=== PATIENT | male | born 1955 | race Caucasian/White ===

== ENCOUNTER 2020-10-27 14:59 | Inpatient (IN) ==
[2020-10-27] MEDS ORDERED: Nitroglycerin 0.4 MG TAB.SUBL SL PRN (17:11)
[2020-10-27] MEDS ORDERED: Lactulose Oral Soln 20 GM/30 ML UDC PO PRN (17:11)
[2020-10-27] MEDS: Furosemide 40 MG TABLET PO SCH (20:22)
[2020-10-28 06:43] LABS: Basophils # 0.1 K/mcL (0.0-0.2); Basophils % 1.3 %; Eosinophils # 0.4 K/mcL (0.0-0.6); Eosinophils % 7.9 %; Hematocrit 30.7 % (37.5-50.1); Hemoglobin 9.4 g/dL (12.9-16.9); Immature Granulocytes % 1.9 % (0-4); Lymphocytes # 0.4 K/mcL (0.6-4.6); Lymphocytes % 9.4 %; Mean Corpuscular HGB Conc 30.6 g/dL (31.6-35.5); Mean Corpuscular Hemoglobin 29.9 pg (28.0-33.3); Mean Corpuscular Volume 97.8 fL (83.0-100.0); Mean Platelet Volume 9.4 fL (9.4-12.4); Monocytes # 0.6 K/mcL (0.0-1.3); Monocytes % 11.9 %; Neutrophils # 3.2 K/mcL (1.6-8.9); Red Blood Count 3.14 M/mcL (4.19-5.50); Segmented Neutrophils % 67.6 %; White Blood Count 4.7 K/mcL (4.3-11.1)
[2020-10-28 06:55] LABS: Platelet Count 88 K/mcL (140-400)
[2020-10-28] MEDS ORDERED: *HR* Enoxaparin 40 MG/0.4 ML SYRINGE SQ SCH (07:00)
[2020-10-28 07:10] LABS: BUN/Creatinine Ratio 22 (6-26); Blood Urea Nitrogen 16 mg/dL (8-23); Calcium 8.7 mg/dL (8.6-10.3); Carbon Dioxide 37 mEq/L (23-29); Chloride 91 mEq/L (98-107); Glucose 133 mg/dL (70-105); Osmolality,Calculated 283 (280-300); Potassium 3.6 mEq/L (3.5-5.1); Sodium 135 mEq/L (136-145); eGFR For African Americans > 60 (> 60); eGFR For Non-African Americans > 60 (> 60)
[2020-10-28] MEDS: Isosorbide MONOnitrate (24 HR) 60 MG TAB.ER.24H PO SCH (09:29)
[2020-10-28] MEDS: FLUoxetine 20 MG CAPSULE PO SCH (09:29)
[2020-10-28] MEDS: Furosemide 40 MG TABLET PO SCH ×2 (09:29→16:12)
[2020-10-28] MEDS: Insulin LISPRO 300 UNITS/3 ML VIAL SUBQ SCH (20:06)
[2020-10-29 05:37] LABS: Basophils % 0.9 %; Eosinophils # 0.3 K/mcL (0.0-0.6); Eosinophils % 7.2 %; Hematocrit 30.9 % (37.5-50.1); Hemoglobin 9.5 g/dL (12.9-16.9); Immature Granulocytes % 1.8 % (0-4); Lymphocytes # 0.5 K/mcL (0.6-4.6); Lymphocytes % 11.2 %; Mean Corpuscular HGB Conc 30.7 g/dL (31.6-35.5); Mean Corpuscular Hemoglobin 30.3 pg (28.0-33.3); Mean Corpuscular Volume 98.4 fL (83.0-100.0); Mean Platelet Volume 9.1 fL (9.4-12.4); Monocytes # 0.5 K/mcL (0.0-1.3); Monocytes % 11.9 %; Red Blood Count 3.14 M/mcL (4.19-5.50); Red Cell Distribution Width 16.3 % (11.5-14.5); White Blood Count 4.5 K/mcL (4.3-11.1)
[2020-10-29 05:44] LABS: Platelet Count 77 K/mcL (140-400)
[2020-10-29 05:57] LABS: BUN/Creatinine Ratio 18 (6-26); Blood Urea Nitrogen 14 mg/dL (8-23); Calcium 8.8 mg/dL (8.6-10.3); Carbon Dioxide 37 mEq/L (23-29); Chloride 92 mEq/L (98-107); Glucose 134 mg/dL (70-105); Osmolality,Calculated 284 (280-300); Potassium 3.8 mEq/L (3.5-5.1); Sodium 136 mEq/L (136-145); eGFR For African Americans > 60 (> 60); eGFR For Non-African Americans > 60 (> 60)
[2020-10-29] MEDS: Insulin LISPRO 300 UNITS/3 ML VIAL SUBQ SCH ×4 (08:48→20:19)
[2020-10-29] MEDS: FLUoxetine 20 MG CAPSULE PO SCH (08:48)
[2020-10-29] MEDS: Furosemide 40 MG TABLET PO SCH ×2 (08:48→16:42)
[2020-10-29] MEDS: Isosorbide MONOnitrate (24 HR) 60 MG TAB.ER.24H PO SCH (08:48)
[2020-10-30] MEDS: Insulin LISPRO 300 UNITS/3 ML VIAL SUBQ SCH ×5 (08:22→23:09)
[2020-10-30] MEDS: FLUoxetine 20 MG CAPSULE PO SCH (08:25)
[2020-10-30] MEDS: Isosorbide MONOnitrate (24 HR) 60 MG TAB.ER.24H PO SCH (08:25)
[2020-10-30] MEDS: Furosemide 40 MG TABLET PO SCH ×2 (08:25→19:46)
[2020-10-31] MEDS: Furosemide 40 MG TABLET PO SCH ×2 (07:58→16:04)
[2020-10-31] MEDS: FLUoxetine 20 MG CAPSULE PO SCH (07:58)
[2020-10-31] MEDS: Isosorbide MONOnitrate (24 HR) 60 MG TAB.ER.24H PO SCH (07:58)
[2020-10-31] MEDS: Insulin LISPRO 300 UNITS/3 ML VIAL SUBQ SCH ×4 (07:59→22:38)
[2020-11-01] MEDS: Isosorbide MONOnitrate (24 HR) 60 MG TAB.ER.24H PO SCH (08:24)
[2020-11-01] MEDS: Furosemide 40 MG TABLET PO SCH ×2 (08:24→17:19)
[2020-11-01] MEDS: Insulin LISPRO 300 UNITS/3 ML VIAL SUBQ SCH ×4 (08:25→20:30)
[2020-11-01] MEDS: FLUoxetine 20 MG CAPSULE PO SCH (08:27)
[2020-11-02 04:47] LABS: Basophils # 0.1 K/mcL (0.0-0.2); Basophils % 1.2 %; Eosinophils # 0.3 K/mcL (0.0-0.6); Eosinophils % 6.5 %; Hematocrit 32.6 % (37.5-50.1); Hemoglobin 9.9 g/dL (12.9-16.9); Immature Granulocytes % 1.4 % (0-4); Lymphocytes # 0.4 K/mcL (0.6-4.6); Lymphocytes % 8.9 %; Mean Corpuscular HGB Conc 30.4 g/dL (31.6-35.5); Mean Corpuscular Hemoglobin 29.8 pg (28.0-33.3); Mean Corpuscular Volume 98.2 fL (83.0-100.0); Mean Platelet Volume 9.9 fL (9.4-12.4); Monocytes # 0.6 K/mcL (0.0-1.3); Monocytes % 13.6 %; Neutrophils # 2.9 K/mcL (1.6-8.9); Red Blood Count 3.32 M/mcL (4.19-5.50); Red Cell Distribution Width 16.3 % (11.5-14.5); Segmented Neutrophils % 68.4 %; White Blood Count 4.3 K/mcL (4.3-11.1)
[2020-11-02 04:48] LABS: Platelet Count 86 K/mcL (140-400)
[2020-11-02 05:03] LABS: BUN/Creatinine Ratio 15 (6-26); Blood Urea Nitrogen 12 mg/dL (8-23); Calcium 8.7 mg/dL (8.6-10.3); Carbon Dioxide 37 mEq/L (23-29); Chloride 90 mEq/L (98-107); Glucose 130 mg/dL (70-105); Osmolality,Calculated 278 (280-300); Potassium 3.8 mEq/L (3.5-5.1); Sodium 133 mEq/L (136-145); eGFR For African Americans > 60 (> 60); eGFR For Non-African Americans > 60 (> 60)
[2020-11-02] MEDS ORDERED: Ondansetron ODT 4 MG TAB.RAPDIS SL ONE (07:47)
[2020-11-02] MEDS: Insulin LISPRO 300 UNITS/3 ML VIAL SUBQ SCH ×5 (08:02→20:10)
[2020-11-02] MEDS: FLUoxetine 20 MG CAPSULE PO SCH (08:22)
[2020-11-02] MEDS: Furosemide 40 MG TABLET PO SCH ×2 (08:22→16:13)
[2020-11-02] MEDS: Isosorbide MONOnitrate (24 HR) 60 MG TAB.ER.24H PO SCH (08:22)
[2020-11-02] MEDS: polyethylene glycoL 3350 17 GM POWD.PACK PO SCH (08:22)
[2020-11-03 07:30] VITALS: BP 135/73
[2020-11-03] MEDS: Insulin LISPRO 300 UNITS/3 ML VIAL SUBQ SCH ×2 (07:48→12:58)
[2020-11-03] MEDS: Furosemide 40 MG TABLET PO SCH (07:49)
[2020-11-03] MEDS: FLUoxetine 20 MG CAPSULE PO SCH (07:50)
[2020-11-03] MEDS: polyethylene glycoL 3350 17 GM POWD.PACK PO SCH (07:50)
[2020-11-03] MEDS: Isosorbide MONOnitrate (24 HR) 60 MG TAB.ER.24H PO SCH (07:50)
== END 2020-11-03 12:00 | disposition home health service (06) | DRG 603 ==
LOC: INPGRE 16:50
PROVIDERS: ADMIT Family Medicine; ATTEND Family Medicine

== ENCOUNTER 2020-11-27 12:08 | Inpatient (IN) ==
[2020-11-28] MEDS ORDERED: Ipratropium/Albuterol Neb 3 ML IH PRN (11:14)
[2020-11-28] MEDS ORDERED: Nitroglycerin 0.4 MG TAB.SUBL SL PRN (11:14)
[2020-11-28] MEDS ORDERED: *HR* Dextrose 50 % in Water (Vial) 50 ML VIAL IVP PRN (12:04)
[2020-11-28] MEDS ORDERED: Dextrose Gel 15 GM/37.5 ML TUBE PO PRN ×2 (12:04)
[2020-11-28] MEDS ORDERED: D5% in Water 1,000 ML IVC PRN (12:04)
[2020-11-28] MEDS: Lactulose Oral Soln 20 GM/30 ML UDC PO SCH ×2 (15:00→20:04)
[2020-11-28] MEDS ORDERED: Bumetanide 1 MG TABLET PO SCH (17:00)
[2020-11-28] MEDS: Insulin LISPRO 300 UNITS/3 ML VIAL SUBQ SCH ×2 (18:30→19:58)
[2020-11-28] MEDS: Cefdinir 300 MG CAPSULE PO SCH (20:03)
[2020-11-29 05:07] LABS: Basophils # 0.1 K/mcL (0.0-0.2); Basophils % 0.9 %; Eosinophils # 0.2 K/mcL (0.0-0.6); Eosinophils % 3.3 %; Hematocrit 31.3 % (37.5-50.1); Hemoglobin 9.8 g/dL (12.9-16.9); Immature Granulocytes % 1.6 % (0-4); Lymphocytes # 0.4 K/mcL (0.6-4.6); Lymphocytes % 6.9 %; Mean Corpuscular HGB Conc 31.3 g/dL (31.6-35.5); Mean Corpuscular Hemoglobin 29.7 pg (28.0-33.3); Mean Corpuscular Volume 94.8 fL (83.0-100.0); Mean Platelet Volume 9.5 fL (9.4-12.4); Monocytes # 0.9 K/mcL (0.0-1.3); Monocytes % 15.5 %; Neutrophils # 4.1 K/mcL (1.6-8.9); Red Cell Distribution Width 16.6 % (11.5-14.5); Segmented Neutrophils % 71.8 %; White Blood Count 5.8 K/mcL (4.3-11.1)
[2020-11-29 05:12] LABS: Platelet Count 92 K/mcL (140-400)
[2020-11-29 05:22] LABS: Alanine Aminotransferase 9 Units/L (7-52); Albumin 3.6 g/dL (3.5-5.7); Albumin/Globulin Ratio 1.2 (1.1-2.2); Alkaline Phosphatase 104 Units/L (34-104); Aspartate Amino Transferase 21 Units/L (13-39); BUN/Creatinine Ratio 21 (6-26); Bilirubin,Total 1.3 mg/dL (0.3-1.0); Blood Urea Nitrogen 18 mg/dL (8-23); Carbon Dioxide 35 mEq/L (23-29); Chloride 88 mEq/L (98-107); Globulin 3.1 g/dL (2.4-3.5); Glucose 131 mg/dL (70-105); Magnesium 1.4 mg/dL (1.6-2.6); Osmolality,Calculated 272 (280-300); Sodium 129 mEq/L (136-145); Total Protein 6.7 g/dL (6.4-8.9); eGFR For African Americans > 60 (> 60); eGFR For Non-African Americans > 60 (> 60)
[2020-11-29] MEDS: Insulin LISPRO 300 UNITS/3 ML VIAL SUBQ SCH ×4 (07:57→20:00)
[2020-11-29] MEDS: Lactulose Oral Soln 20 GM/30 ML UDC PO SCH ×3 (08:34→20:05)
[2020-11-29] MEDS: Cefdinir 300 MG CAPSULE PO SCH ×2 (08:35→20:05)
[2020-11-29] MEDS: FLUoxetine 20 MG CAPSULE PO SCH (08:35)
[2020-11-29] MEDS: Bumetanide 1 MG TABLET PO SCH ×2 (08:35→16:55)
[2020-11-30] MEDS: Insulin LISPRO 300 UNITS/3 ML VIAL SUBQ SCH ×4 (07:58→20:53)
[2020-11-30] MEDS: FLUoxetine 20 MG CAPSULE PO SCH (08:00)
[2020-11-30] MEDS: Bumetanide 1 MG TABLET PO SCH ×2 (08:01→16:40)
[2020-11-30] MEDS: Lactulose Oral Soln 20 GM/30 ML UDC PO SCH ×3 (08:01→21:06)
[2020-11-30] MEDS: Cefdinir 300 MG CAPSULE PO SCH ×2 (08:01→21:05)
[2020-12-01] MEDS: Acetaminophen 325 MG TABLET PO PRN (02:00)
[2020-12-01 05:06] LABS: Hematocrit 30.9 % (37.5-50.1); Hemoglobin 9.7 g/dL (12.9-16.9); Mean Corpuscular HGB Conc 31.4 g/dL (31.6-35.5); Mean Corpuscular Hemoglobin 29.4 pg (28.0-33.3); Mean Corpuscular Volume 93.6 fL (83.0-100.0); Red Cell Distribution Width 16.7 % (11.5-14.5); White Blood Count 5.6 K/mcL (4.3-11.1)
[2020-12-01 05:11] LABS: Platelet Count 77 K/mcL (140-400)
[2020-12-01 05:24] LABS: Alanine Aminotransferase 9 Units/L (7-52); Albumin 3.2 g/dL (3.5-5.7); Alkaline Phosphatase 104 Units/L (34-104); Aspartate Amino Transferase 21 Units/L (13-39); BUN/Creatinine Ratio 21 (6-26); Bilirubin,Total 1.2 mg/dL (0.3-1.0); Blood Urea Nitrogen 17 mg/dL (8-23); Calcium 8.6 mg/dL (8.6-10.3); Carbon Dioxide 36 mEq/L (23-29); Chloride 87 mEq/L (98-107); Globulin 3.2 g/dL (2.4-3.5); Glucose 145 mg/dL (70-105); Magnesium 1.6 mg/dL (1.6-2.6); Osmolality,Calculated 272 (280-300); Potassium 3.5 mEq/L (3.5-5.1); Sodium 129 mEq/L (136-145); Total Protein 6.4 g/dL (6.4-8.9); eGFR For African Americans > 60 (> 60); eGFR For Non-African Americans > 60 (> 60)
[2020-12-01] MEDS: Insulin LISPRO 300 UNITS/3 ML VIAL SUBQ SCH ×4 (08:32→20:53)
[2020-12-01] MEDS: Lactulose Oral Soln 20 GM/30 ML UDC PO SCH ×3 (08:33→20:54)
[2020-12-01] MEDS: Bumetanide 1 MG TABLET PO SCH ×2 (08:34→17:25)
[2020-12-01] MEDS: FLUoxetine 20 MG CAPSULE PO SCH (08:35)
[2020-12-01] MEDS: Cefdinir 300 MG CAPSULE PO SCH ×2 (08:35→20:54)
[2020-12-01] MEDS: Albumin 25% 25gram/100mL 25 GM/100 ML IV.SOLN IVPB SCH (17:21)
[2020-12-02] MEDS: Albumin 25% 25gram/100mL 25 GM/100 ML IV.SOLN IVPB SCH ×3 (01:03→15:59)
[2020-12-02] MEDS: Acetaminophen 325 MG TABLET PO PRN (04:34)
[2020-12-02 06:00] LABS: Hematocrit 31.3 % (37.5-50.1); Hemoglobin 9.7 g/dL (12.9-16.9); Mean Corpuscular Hemoglobin 29.1 pg (28.0-33.3); Mean Platelet Volume 9.8 fL (9.4-12.4); Red Blood Count 3.33 M/mcL (4.19-5.50); Red Cell Distribution Width 16.6 % (11.5-14.5); White Blood Count 5.1 K/mcL (4.3-11.1)
[2020-12-02 06:13] LABS: Platelet Count 72 K/mcL (140-400)
[2020-12-02 06:17] LABS: BUN/Creatinine Ratio 20 (6-26); Blood Urea Nitrogen 15 mg/dL (8-23); Calcium 8.9 mg/dL (8.6-10.3); Carbon Dioxide 37 mEq/L (23-29); Chloride 87 mEq/L (98-107); Glucose 116 mg/dL (70-105); Osmolality,Calculated 270 (280-300); Potassium 3.8 mEq/L (3.5-5.1); Sodium 129 mEq/L (136-145); eGFR For African Americans > 60 (> 60); eGFR For Non-African Americans > 60 (> 60)
[2020-12-02] MEDS: Insulin LISPRO 300 UNITS/3 ML VIAL SUBQ SCH ×4 (08:05→20:34)
[2020-12-02] MEDS: FLUoxetine 20 MG CAPSULE PO SCH (08:09)
[2020-12-02] MEDS: Bumetanide 1 MG TABLET PO SCH ×2 (08:09→15:58)
[2020-12-02] MEDS: Lactulose Oral Soln 20 GM/30 ML UDC PO SCH ×3 (08:09→20:33)
[2020-12-03] MEDS: Albumin 25% 25gram/100mL 25 GM/100 ML IV.SOLN IVPB SCH (01:57)
[2020-12-03] MEDS: Insulin LISPRO 300 UNITS/3 ML VIAL SUBQ SCH ×4 (08:15→20:34)
[2020-12-03] MEDS: Lactulose Oral Soln 20 GM/30 ML UDC PO SCH ×3 (08:22→20:34)
[2020-12-03] MEDS: FLUoxetine 20 MG CAPSULE PO SCH (08:22)
[2020-12-03] MEDS: Bumetanide 1 MG TABLET PO SCH ×2 (08:22→16:43)
[2020-12-03] MEDS ORDERED: Albumin 25% 25gram/100mL 25 GM/100 ML IV.SOLN IVPB SCH (10:00)
[2020-12-04] MEDS: Acetaminophen 325 MG TABLET PO PRN (02:53)
[2020-12-04] MEDS: Bumetanide 1 MG TABLET PO SCH ×2 (09:15→17:34)
[2020-12-04] MEDS: Insulin LISPRO 300 UNITS/3 ML VIAL SUBQ SCH ×4 (09:15→20:13)
[2020-12-04] MEDS: FLUoxetine 20 MG CAPSULE PO SCH (09:16)
[2020-12-04] MEDS: Lactulose Oral Soln 20 GM/30 ML UDC PO SCH ×3 (09:16→20:18)
[2020-12-04 09:25] LABS: Alanine Aminotransferase 9 Units/L (7-52); Albumin/Globulin Ratio 1.3 (1.1-2.2); Alkaline Phosphatase 92 Units/L (34-104); Aspartate Amino Transferase 19 Units/L (13-39); BUN/Creatinine Ratio 20 (6-26); Bilirubin,Total 2.2 mg/dL (0.3-1.0); Blood Urea Nitrogen 17 mg/dL (8-23); Calcium 9.8 mg/dL (8.6-10.3); Carbon Dioxide 36 mEq/L (23-29); Chloride 86 mEq/L (98-107); Globulin 3.2 g/dL (2.4-3.5); Glucose 109 mg/dL (70-105); Osmolality,Calculated 272 (280-300); Potassium 3.9 mEq/L (3.5-5.1); Sodium 130 mEq/L (136-145); Total Protein 7.2 g/dL (6.4-8.9); eGFR For African Americans > 60 (> 60); eGFR For Non-African Americans > 60 (> 60)
[2020-12-05] MEDS: Acetaminophen 325 MG TABLET PO PRN (03:32)
[2020-12-05 09:08] VITALS: BP 110/66
[2020-12-05] MEDS: Insulin LISPRO 300 UNITS/3 ML VIAL SUBQ SCH ×2 (09:09→11:57)
[2020-12-05] MEDS: Bumetanide 1 MG TABLET PO SCH (09:10)
[2020-12-05] MEDS: FLUoxetine 20 MG CAPSULE PO SCH (09:10)
[2020-12-05] MEDS: Lactulose Oral Soln 20 GM/30 ML UDC PO SCH (09:10)
== END 2020-12-05 12:45 | disposition home health service (06) | DRG 372 ==
LOC: INPGRE 11-28 11:03
PROVIDERS: ADMIT Family Medicine; ATTEND Family Medicine